=== PATIENT | female | born 1995 | race Caucasian/White ===

== ENCOUNTER → 2016-11-14 | Outpatient (CLI) | payer BC ==
--- NOTE | 2016-11-14 20:15 | REP ---
Clinical: Pain. Technique: AP, lateral, bilateral oblique views of the left foot. Findings: No acute fracture dislocation. Joint spaces are intact and normal. Surrounding soft tissues are unremarkable. Impression: Normal left foot radiographs. Signed by Alfa Rivero MD 11/14/2016 08:07 P
== END ==
LOC: M ADAMS 17:45
PROVIDERS: ATTEND Physician Assistant
DX: M79.672 Pain in left foot (principal)

== ENCOUNTER → 2021-07-06 | Outpatient (CLI) | payer BC ==
[2021-07-06 13:09] LABS: MEAN CORPUSCULAR HEMOGLOBIN 30.5 pg (27.0-33.0); MEAN CORPUSCULAR HGB CONC 33.3 g/dl (32.0-36.5); MEAN CORPUSCULAR VOLUME 91.5 fl (80.0-96.0); PLATELET COUNT, AUTOMATED 251 10^3/uL (150-450); RED BLOOD COUNT 4.26 10^6/uL (4.00-5.40); WHITE BLOOD COUNT 11.6 10^3/uL (4.0-10.0)
[2021-07-06 14:21] LABS: HIV 1&2 SCREEN CENTAUR NEGATIVE (NEGATIVE)
[2021-07-06 15:05] LABS: GC DNA AMPLIFICATION NEGATIVE (NEGATIVE)
== END ==
LOC: M PLALAB 10:43
PROVIDERS: ATTEND Advanced Practice Midwife
DX: Z34.01 Encounter for supervision of normal first pregnancy, first trimester (principal); Z36.89 Encounter for other specified antenatal screening

== ENCOUNTER → 2021-07-25 | Outpatient (CLI) | payer BC | LOC: M PLALAB 15:42 | PROVIDERS: ATTEND Advanced Practice Midwife | DX: Z34.80 Encounter for supervision of other normal pregnancy, unspecified trimester (principal); Z36.89 Encounter for other specified antenatal screening ==

== ENCOUNTER → 2021-09-25 | Outpatient (CLI) | payer BC | LOC: M WHC 12:49 | PROVIDERS: ATTEND Obstetrics & Gynecology | DX: Z34.92 Encounter for supervision of normal pregnancy, unspecified, second trimester (principal); Z36.89 Encounter for other specified antenatal screening; Z3A.20 20 weeks gestation of pregnancy ==

== ENCOUNTER → 2021-10-09 | Outpatient (REF) | payer BC | LOC: M PLALAB 08:19 | PROVIDERS: ATTEND Advanced Practice Midwife | DX: Z53.9 Procedure and treatment not carried out, unspecified reason (principal) ==

== ENCOUNTER → 2021-10-25 | Outpatient (CLI) | payer BC | LOC: M WHC 14:50 | PROVIDERS: ATTEND Advanced Practice Midwife | DX: Z34.02 Encounter for supervision of normal first pregnancy, second trimester (principal); Z36.89 Encounter for other specified antenatal screening; Z3A.24 24 weeks gestation of pregnancy ==

== ENCOUNTER → 2021-11-12 | Outpatient (CLI) | payer BC ==
[2021-11-12 13:50] LABS: HEMATOCRIT 35.1 % (36.0-47.0); HEMOGLOBIN 11.4 g/dl (12.0-15.5); MEAN CORPUSCULAR HEMOGLOBIN 31.9 pg (27.0-33.0); MEAN CORPUSCULAR HGB CONC 32.5 g/dl (32.0-36.5); MEAN CORPUSCULAR VOLUME 98.3 fl (80.0-96.0); PLATELET COUNT, AUTOMATED 197 10^3/uL (150-450); RED BLOOD COUNT 3.57 10^6/uL (4.00-5.40); WHITE BLOOD COUNT 11.8 10^3/uL (4.0-10.0)
== END ==
LOC: M PLALAB 08:52
PROVIDERS: ATTEND Advanced Practice Midwife
DX: Z34.02 Encounter for supervision of normal first pregnancy, second trimester (principal)

== ENCOUNTER → 2021-11-15 | Outpatient (CLI) | payer BC | LOC: M WHC 14:52 | PROVIDERS: ATTEND Obstetrics & Gynecology | DX: Z36.2 Encounter for other antenatal screening follow-up (principal); Z3A.27 27 weeks gestation of pregnancy ==

== ENCOUNTER → 2022-01-16 | Outpatient (REF) | payer BC | LOC: M SFHCWAGY 17:34 | PROVIDERS: ATTEND Obstetrics & Gynecology | DX: Z36.85 Encounter for antenatal screening for Streptococcus B (principal); Z3A.36 36 weeks gestation of pregnancy ==

== ENCOUNTER 2022-02-14 10:54 | Outpatient (CLI) | payer BC, OTHER ==
[~2022-02-14] VITALS: Ht 162.6 cm; Wt 86.5 kg
[2022-02-14] VITALS (14 sets, daily range): BP systolic 112–141; BP diastolic 58–91
[2022-02-14] MEDS ORDERED: PRENTAB9 PO (11:09)
[2022-02-14] MEDS ORDERED: MAGN200T PO (11:09)
[2022-02-14] MEDS ORDERED: HOME MED LIST COMPLETE! XX SCH (11:25)
[2022-02-14 12:32] LABS: HEMATOCRIT 38.3 % (36.0-47.0); HEMOGLOBIN 12.7 g/dl (12.0-15.5); MEAN CORPUSCULAR HEMOGLOBIN 31.4 pg (27.0-33.0); MEAN CORPUSCULAR HGB CONC 33.2 g/dl (32.0-36.5); MEAN CORPUSCULAR VOLUME 94.8 fl (80.0-96.0); PLATELET COUNT, AUTOMATED 193 10^3/uL (150-450); RED BLOOD COUNT 4.04 10^6/uL (4.00-5.40); WHITE BLOOD COUNT 12.6 10^3/uL (4.0-10.0)
[2022-02-14 12:54] LABS: CREATININE,RANDOM URINE 81.1 MG/DL
[2022-02-14 13:14] LABS: ALT/SGPT 19 U/L (12-78); BILIRUBIN,TOTAL 0.2 MG/DL (0.2-1.0); CREATININE FOR GFR 0.46 MG/DL (0.55-1.30); GLOMERULAR FILTRATION RATE > 60.0 (>60); LDH LACTATE DEHYDROGENASE 188 U/L (84-246); URIC ACID 3.6 MG/DL (2.6-6.0)
== END 2022-02-14 18:20 | disposition home or self-care (01) ==
LOC: M LDO 10:54
PROVIDERS: ATTEND Obstetrics & Gynecology
DX: O26.893 Other specified pregnancy related conditions, third trimester (principal); R03.0 Elevated blood-pressure reading, without diagnosis of hypertension; O48.0 Post-term pregnancy; Z3A.40 40 weeks gestation of pregnancy
CPT/HCPCS: 36415; 59025; 82247; 82565; 82570; 83615; 84156; 84450; 84460; 84550; 85027; G0378; G0463

== ENCOUNTER 2022-02-16 19:32 | Inpatient (IN) | payer BC, OTHER ==
[~2022-02-16] VITALS: Ht 162.6 cm; Wt 86.3 kg
[~2022-02-16 19:32] MED LIST: MAGN200T PO; PRENTAB9 PO
[2022-02-16 19:49] VITALS: BP 137/90
[2022-02-16 20:01] VITALS: BP 140/89
[2022-02-16 20:21] VITALS: BP 138/86
[2022-02-16 20:36] VITALS: BP 138/84
[2022-02-16 21:27] VITALS: BP 141/85
[2022-02-16 21:34] LABS: CREATININE,RANDOM URINE 94.8 MG/DL; TOTAL PROTEIN,RANDOM URINE 16.5 MG/DL (0.0-12.0)
[2022-02-16 22:10] VITALS: BP 142/89
[2022-02-16] MEDS ORDERED: LR 1,000 ML IV SCH (22:55)
[2022-02-17] VITALS (33 sets, daily range): BP systolic 105–145; BP diastolic 53–84
[2022-02-17 00:08] LABS: ALT/SGPT 15 U/L (12-78); BILIRUBIN,TOTAL 0.3 MG/DL (0.2-1.0); CREATININE FOR GFR 0.49 MG/DL (0.55-1.30); GLOMERULAR FILTRATION RATE > 60.0 (>60); LDH LACTATE DEHYDROGENASE 220 U/L (84-246); URIC ACID 3.3 MG/DL (2.6-6.0)
[2022-02-17 00:09] LABS: BASO % 0.2 % (0.0-1.0); EOS % 0.1 % (0.0-3.0); HEMATOCRIT 36.5 % (36.0-47.0); HEMOGLOBIN 12.2 g/dl (12.0-15.5); LYMPH # 1.4 10^3/uL (1.5-5.0); LYMPH % 8.3 % (24.0-44.0); MEAN CORPUSCULAR HEMOGLOBIN 31.4 pg (27.0-33.0); MEAN CORPUSCULAR HGB CONC 33.4 g/dl (32.0-36.5); MEAN CORPUSCULAR VOLUME 94.1 fl (80.0-96.0); MONO # 0.8 10^3/uL (0.0-0.8); MONO % 4.5 % (2.0-8.0); NEUTROPHILS # 14.5 10^3/uL (1.5-8.5); NEUTROPHILS % 85.4 % (36.0-66.0); PLATELET COUNT, AUTOMATED 189 10^3/uL (150-450); RED BLOOD COUNT 3.88 10^6/uL (4.00-5.40)
[2022-02-17] MEDS ORDERED: diphenhydrAMINE 50MG/ML VIAL (J1200) IV PRN (01:20)
[2022-02-17] MEDS ORDERED: EPIDURAL/PCA KEYS XX PRN (01:20)
[2022-02-17] MEDS ORDERED: ONDANSETRON 4MG 2ML VIAL IV PRN (01:20)
[2022-02-17] MEDS ORDERED: ePHEDrine SULFATE 25 MG/5 ML(5MG/ML) SYRINGE IVP PRN (01:20)
[2022-02-17] MEDS ORDERED: FENTANYL/ROPIVACAINE/NACL BAG 100 ML EPIDURAL SCH (01:20)
[2022-02-17] MEDS ORDERED: LR 500 ML IV PRN (01:20)
[2022-02-17] MEDS ORDERED: NALOXONE INJ 0.4MG/1ML VIAL (J2310 PER 1MG) IV PRN (01:20)
[2022-02-17] MEDS ORDERED: OXYTOCIN DRIP 30 UNITS in IV 1 EA IV SCH ×2 (05:20→07:30)
[2022-02-17] MEDS ORDERED: OXYTOCIN 30 UNITS IN 0.9% NaCl 500ML IV BAG (J2590) As Ordered ONE (05:36)
[2022-02-17 07:06] LABS: CORD GAS ABE V -10.4; CORD GAS HCO3 V 15.6 MEQ/L; CORD GAS O2 SAT V 75.2 %; CORD GAS PCO2 V 35.3 mmHg; CORD GAS PH V 7.262 UNITS; CORD GAS PO2 V 35.8 mmHg; CORD GAS SBC V 15.9 MEQ/L; CORD GAS TCO2 V 16.6 MEQ/L
[2022-02-17] MEDS ORDERED: IBUPROFEN 600MG TAB PO PRN (07:30)
[2022-02-17] MEDS ORDERED: METHYLERGONOVINE MALEATE 0.2 MG TAB PO PRN (07:30)
[2022-02-17] MEDS ORDERED: ACETAMINOPHEN TAB 650MG DOSE (2X325MG) PO PRN (07:30)
[2022-02-17] MEDS ORDERED: RHOGAM 300 MCG (1500 IU) INJ (J2790) IM SCH (07:30)
[2022-02-17] MEDS: PRENATAL VITAMINS CHEWABLE TABLET PO SCH (08:28)
[2022-02-17] MEDS: IBUPROFEN 800 MG TAB PO PRN ×2 (08:28→17:48)
[2022-02-17] MEDS: ACETAMINOPHEN 500 MG TAB PO PRN (14:08)
[2022-02-17] MEDS: DIBUCAINE 1% OINTMENT 30GM TOP PRN (14:08)
[2022-02-17] MEDS: DOCUSATE SODIUM 100MG CAPSULE PO PRN (21:01)
[2022-02-18] MEDS: ANUSOL HC CREAM 30GM TOP PRN ×2 (00:09→07:41)
[2022-02-18] MEDS: IBUPROFEN 800 MG TAB PO PRN ×2 (00:09→07:42)
[2022-02-18 07:00] VITALS: BP 141/72
[2022-02-18] MEDS: DIBUCAINE 1% OINTMENT 30GM TOP PRN (07:42)
[2022-02-18] MEDS ORDERED: INFLUENZA QUADRIVALENT PF VACCINE 0.5ML SYRINGE IM.IMMUN ONE (08:50)
[2022-02-18] MEDS: ACETAMINOPHEN 500 MG TAB PO PRN ×2 (09:36→16:12)
[2022-02-18] MEDS: PRENATAL VITAMINS CHEWABLE TABLET PO SCH (09:36)
[2022-02-18 15:32] LABS: HEMATOCRIT 30.7 % (36.0-47.0); HEMOGLOBIN 10.3 g/dl (12.0-15.5); MEAN CORPUSCULAR HEMOGLOBIN 31.8 pg (27.0-33.0); MEAN CORPUSCULAR HGB CONC 33.6 g/dl (32.0-36.5); MEAN CORPUSCULAR VOLUME 94.8 fl (80.0-96.0); PLATELET COUNT, AUTOMATED 178 10^3/uL (150-450); RED BLOOD COUNT 3.24 10^6/uL (4.00-5.40); WHITE BLOOD COUNT 15.4 10^3/uL (4.0-10.0)
[2022-02-18 15:54] LABS: ALT/SGPT 22 U/L (12-78); BILIRUBIN,TOTAL 0.2 MG/DL (0.2-1.0); CREATININE FOR GFR 0.48 MG/DL (0.55-1.30); GLOMERULAR FILTRATION RATE > 60.0 (>60); LDH LACTATE DEHYDROGENASE 209 U/L (84-246); URIC ACID 3.9 MG/DL (2.6-6.0)
[2022-02-18 18:16] VITALS: BP 132/79
[2022-02-18] MEDS: DOCUSATE SODIUM 100MG CAPSULE PO PRN (21:31)
[2022-02-19] MEDS: IBUPROFEN 800 MG TAB PO PRN ×2 (05:42→11:47)
[2022-02-19 06:00] VITALS: BP 140/78
[2022-02-19] MEDS ORDERED: MEASLES,MUMPS,RUBELLA VACCINE INJ (MMR-II) (90707) SC.IMMUN ONE (09:00)
[2022-02-19] MEDS ORDERED: INFLUENZA QUADRIVALENT PF VACCINE 0.5ML SYRINGE IM.IMMUN ONE (10:00)
[2022-02-19] MEDS: PRENATAL VITAMINS CHEWABLE TABLET PO SCH (10:25)
== END 2022-02-19 13:50 | disposition home or self-care (01) | DRG 807 ==
LOC: M LDO 19:32 → M LDI 23:03 → M OBS 02-17 10:21
PROVIDERS: ADMIT Obstetrics & Gynecology; ATTEND Obstetrics & Gynecology
PROC: 10E0XZZ Delivery of Products of Conception, External Approach (ICD-10-PCS; principal; 2022-02-17)
PROC: 0W8NXZZ Division of Female Perineum, External Approach (ICD-10-PCS; 2022-02-17)
DX: O48.0 Post-term pregnancy (principal); Z37.0 Single live birth; Z3A.40 40 weeks gestation of pregnancy; O77.0 Labor and delivery complicated by meconium in amniotic fluid

== ENCOUNTER → 2022-09-06 | Outpatient (REF) | payer OTHER | LOC: M PLALAB 11:03 | PROVIDERS: ATTEND Obstetrics & Gynecology | DX: Z01.419 Encounter for gynecological examination (general) (routine) without abnormal findings (principal) ==

== ENCOUNTER → 2022-12-04 | Outpatient (REF) | payer OTHER ==
[2022-12-04 13:37] LABS: BASO % 0.4 % (0.0-1.0); EOS # 0.2 10^3/uL (0.0-0.5); EOS % 3.1 % (0.0-3.0); HEMATOCRIT 41.7 % (36.0-47.0); HEMOGLOBIN 13.3 g/dl (12.0-15.5); MEAN CORPUSCULAR HEMOGLOBIN 29.2 pg (27.0-33.0); MEAN CORPUSCULAR HGB CONC 31.9 g/dl (32.0-36.5); MEAN CORPUSCULAR VOLUME 91.4 fl (80.0-96.0); MONO # 0.5 10^3/uL (0.0-0.8); MONO % 7.5 % (2.0-8.0); NEUTROPHILS % 58.9 % (36.0-66.0); PLATELET COUNT, AUTOMATED 244 10^3/uL (150-450); RED BLOOD COUNT 4.56 10^6/uL (4.00-5.40); WHITE BLOOD COUNT 6.8 10^3/uL (4.0-10.0)
[2022-12-04 13:43] LABS: ALBUMIN 3.8 G/DL (3.2-5.2); ALKALINE PHOSPHATASE 118 U/L (46-116); ALT/SGPT 15 U/L (7.0-40); AST/SGOT < 8 U/L (<34); BILIRUBIN,TOTAL 0.7 MG/DL (0.3-1.2); BLOOD UREA NITROGEN 16 MG/DL (9-23); CALCIUM LEVEL 9.2 MG/DL (8.5-10.1); CARBON DIOXIDE LEVEL 27 MMOL/L (20-31); CHLORIDE LEVEL 106 MMOL/L (98-107); CHOLESTEROL LEVEL 164 MG/DL (<200); CHOLESTEROL RISK RATIO 1.84 (<5); CREATININE FOR GFR 0.54 MG/DL (0.55-1.30); FREE T4 1.22 NG/DL (0.89-1.76); GLOMERULAR FILTRATION RATE > 60.0 (>60); GLUCOSE, FASTING 78 MG/DL (60-100); HDL CHOLESTEROL 89.1 MG/DL (>40); LDL CHOLESTEROL 66.7 MG/DL (<100); NON-HDL-C 74.9 MG/DL; POTASSIUM SERUM 4.3 MMOL/L (3.5-5.1); SODIUM LEVEL 140 MMOL/L (136-145); THYROID STIMULATING HORMONE 1.608 uIU/ML (0.55-4.78); TOTAL 25(OH) VITAMIN D 37.9 NG/ML (20.0-100.0); TOTAL PROTEIN 6.6 G/DL (5.7-8.2); TRIGLYCERIDES LEVEL 41 MG/DL (<150); VITAMIN B12 LEVEL 616 PG/ML (211-911)
[2022-12-04 13:45] LABS: FOLATE > 24.0 NG/ML (>5.4)
== END ==
LOC: M SFHCCLAY 07:09
PROVIDERS: ATTEND Physician Assistant
DX: Z00.00 Encounter for general adult medical examination without abnormal findings (principal); F41.8 Other specified anxiety disorders

== ENCOUNTER → 2024-03-24 | Outpatient (CLI) | payer OTHER ==
[2024-03-24 11:21] LABS: HEMATOCRIT 38.2 % (36.0-47.0); HEMOGLOBIN 12.5 g/dl (12.0-15.5); MEAN CORPUSCULAR HEMOGLOBIN 29.8 pg (27.0-33.0); MEAN CORPUSCULAR HGB CONC 32.7 g/dl (32.0-36.5); MEAN CORPUSCULAR VOLUME 91.2 fl (80.0-96.0); PLATELET COUNT, AUTOMATED 231 10^3/uL (150-450); RED BLOOD COUNT 4.19 10^6/uL (4.00-5.40); WHITE BLOOD COUNT 8.5 10^3/uL (4.0-10.0)
[2024-03-24 12:23] LABS: HIV 1&2 SCREEN NEGATIVE (NEGATIVE)
[2024-03-24 12:31] LABS: HEPATITIS C VIRUS ABY INDEX 0.07 INDEX (<0.8)
[2024-03-24 12:44] LABS: GC DNA AMPLIFICATION NEGATIVE (NEGATIVE)
== END ==
LOC: M PLALAB 07:21
PROVIDERS: ATTEND Advanced Practice Midwife
DX: O99.341 Other mental disorders complicating pregnancy, first trimester (principal); Z3A.00 Weeks of gestation of pregnancy not specified

== ENCOUNTER → 2024-04-22 | Outpatient (REF) | payer OTHER | LOC: M PLALAB 11:01 | PROVIDERS: ATTEND Nurse Practitioner Family | DX: R82.90 Unspecified abnormal findings in urine (principal) ==

== ENCOUNTER → 2024-06-03 | Outpatient (CLI) | payer OTHER | LOC: M WHC 14:04 | PROVIDERS: ATTEND Nurse Practitioner Family | DX: Z34.82 Encounter for supervision of other normal pregnancy, second trimester (principal); Z3A.19 19 weeks gestation of pregnancy ==

== ENCOUNTER → 2024-07-15 | Outpatient (CLI) | payer OTHER ==
[2024-07-15 10:08] LABS: HEMOGLOBIN 11.9 g/dl (12.0-15.5); MEAN CORPUSCULAR HEMOGLOBIN 30.9 pg (27.0-33.0); MEAN CORPUSCULAR HGB CONC 33.1 g/dl (32.0-36.5); MEAN CORPUSCULAR VOLUME 93.5 fl (80.0-96.0); PLATELET COUNT, AUTOMATED 201 10^3/uL (150-450); RED BLOOD COUNT 3.85 10^6/uL (4.00-5.40); WHITE BLOOD COUNT 11.1 10^3/uL (4.0-10.0)
[2024-07-15 10:31] LABS: GLUCOSE CHALLENGE TEST 1 HOUR 90 MG/DL (LESS THAN 140)
[2024-07-15 11:01] LABS: HIV 1&2 SCREEN NEGATIVE (NEGATIVE)
[2024-07-15 11:09] LABS: HEPATITIS C VIRUS ABY INDEX 0.15 INDEX (<0.8)
[2024-07-15 11:27] LABS: Trichomonas vaginalis (AMP) NOT DETECTED (NEGATIVE)
[2024-07-15 11:50] LABS: GC DNA AMPLIFICATION NEGATIVE (NEGATIVE)
== END ==
LOC: M PLALAB 07:53
PROVIDERS: ATTEND Nurse Practitioner Family
DX: Z34.80 Encounter for supervision of other normal pregnancy, unspecified trimester (principal)

== ENCOUNTER → 2024-10-04 | Outpatient (REF) | payer OTHER | LOC: M PLALAB 07:50 | PROVIDERS: ATTEND Obstetrics & Gynecology | DX: Z34.82 Encounter for supervision of other normal pregnancy, second trimester (principal) ==